=== PATIENT | male | born 1980 | race Caucasian/White ===

== ENCOUNTER 2018-06-13 13:57 | Inpatient (IN) | payer OTHER ==
[~2018-06-13] VITALS: Ht 185.4 cm; Wt 79.9 kg
[2018-06-13 14:33] VITALS: BP 122/67
[2018-06-13] MEDS: D5%-0.45% NACL 1,000 ML IV SCH ×2 (15:00→22:50)
[2018-06-13] MEDS ORDERED: ONDANSETRON ODT 4 MG PO PRN (15:00)
[2018-06-13] MEDS ORDERED: PLEASE ENTER ALLERGIES MC SCH (15:00)
[2018-06-13] MEDS ORDERED: POLYETHYLENE GLYCOL 17 GM PACKET PO PRN (15:00)
[2018-06-13] MEDS ORDERED: LABETALOL 5MG/ML, 20ML IVPush PRN (15:00)
[2018-06-13] MEDS ORDERED: PLEASE ENTER HEIGHT AND WEIGHT MC SCH (15:00)
[2018-06-13] MEDS ORDERED: ONDANSETRON 2MG/ML, 2ML IVPush PRN (15:00)
[2018-06-13 15:29] LABS: BASOPHILS # (AUTO) 0.02 x10^3/uL (0-0.1); BASOPHILS % (AUTO) 0 % (0-1); EOSINOPHILS % (AUTO) 0 % (1-7); LYMPHOCYTES % (AUTO) 8 % (22-44); MD NO; MEAN CORPUSCULAR HEMOGLOBIN 30.2 pg (27.5-34.5); MEAN CORPUSCULAR HGB CONC 33.1 g/dL (33.2-36.2); MEAN CORPUSCULAR VOLUME 91.2 fL (81-97); MEAN PLATELET VOLUME 11.3 fL (7.4-10.4); MONOCYTES # (AUTO) 0.12 x10^3/uL (0.2-0.8); MONOCYTES % (AUTO) 1 % (2-9); NEUTROPHILS # (AUTO) 9.37 x10^3/uL (1.8-6.8); NEUTROPHILS % (AUTO) 91 % (42-75); PLATELET COUNT 223 x10^3/uL (130-400); RED BLOOD COUNT 5.18 x10^6/uL (4.38-5.82); RED CELL DISTRIBUTION WIDTH 12.4 % (9.4-14.8)
[2018-06-13] MEDS ORDERED: OXYcodone/APAP 5/325MG TABLET PO PRN (15:30)
[2018-06-13] MEDS ORDERED: POTASSIUM CHLORIDE 20 MEQ, MAGNESIUM SULFATE 1 GM, FOLIC ACID 1 MG, THIAMINE 200 MG, MV... IV SCH (15:30)
[2018-06-13 15:37] LABS: ALANINE AMINOTRANSFERASE 26 U/L (12-78); ALBUMIN 3.9 g/dL (3.4-5.0); ANION GAP 6 mmol/L (5-15); CALCIUM 8.7 mg/dL (8.5-10.1); CHLORIDE 107 mmol/L (98-107); CREATININE 1.04 mg/dL (0.7-1.3)
[2018-06-13 15:40] LABS: ALKALINE PHOSPHATASE 50 U/L (45-117); BILIRUBIN,TOTAL 0.7 mg/dL (0.2-1.0); TOTAL PROTEIN 6.8 g/dL (6.4-8.2)
[2018-06-13] MEDS: METHOCARBAMOL 750 MG in DEXTROSE 5% 100 ML IV PRN (16:00)
[2018-06-13 16:23] LABS: INTERNATIONAL NORMALIZED RATIO 1.05 (0.93-1.1); PROTHROMBIN TIME 11.1 Seconds (9.6-11.5)
[2018-06-13] MEDS: MORPHINE SULFATE 4 MG/ML, 1ML IVPush PRN ×3 (16:47→23:09)
[2018-06-13] MEDS ORDERED: BACITRACIN 50,000 UNIT ONE (18:29)
[2018-06-13] MEDS ORDERED: THROMBIN 5,000 UNIT VIAL TP ONE (18:29)
[2018-06-13] MEDS ORDERED: BUPIVACAINE/PF-EPI 0.5% 1:200K ONE (18:29)
[2018-06-13] MEDS ORDERED: FENTANYL PF 250 MCG/5ML ONE (19:00)
[2018-06-13] MEDS ORDERED: MIDAZOLAM 1 MG/ML, 2ML ONE (19:00)
[2018-06-13] MEDS ORDERED: LIDOCAINE-MPF 2% ,5ML ONE (19:01)
[2018-06-13] MEDS ORDERED: PROPOFOL 10 MG/ML, 20ML ONE (19:01)
[2018-06-13] MEDS ORDERED: CEFAZOLIN 1,000 MG ONE (19:09)
[2018-06-13] MEDS ORDERED: DEXAMETHASONE 4 MG/ML, 1ML ONE (19:32)
[2018-06-13] MEDS ORDERED: ONDANSETRON 2MG/ML, 2ML ONE (19:32)
[2018-06-13] MEDS ORDERED: ROCURONIUM 10MG/ML,5ML ONE (19:32)
[2018-06-13] MEDS ORDERED: SUGAMMADEX 200 MG/2 ML IVPush ONE (19:34)
[2018-06-13] MEDS ORDERED: DEXMEDETOMIDINE 200 MCG/2 ML ONE (19:34)
[2018-06-13] MEDS ORDERED: hydrALAzine 20 MG/ML, 1ML IV PRN (20:00)
[2018-06-13] MEDS ORDERED: ACETAMINOPHEN 325 MG TABLET PO PRN (20:00)
[2018-06-13] MEDS ORDERED: HYDROmorphone 2 MG/ML, 1ML IVPush PRN (20:00)
[2018-06-13] MEDS ORDERED: HALOPERIDOL 5 MG/ML IV PRN (20:00)
[2018-06-13] MEDS ORDERED: DIAZEPAM 5 MG/ML, 2ML IVPush PRN (20:00)
[2018-06-13] MEDS ORDERED: PROMETHAZINE 25 MG/ML, 1ML IV PRN (20:00)
[2018-06-13] MEDS ORDERED: OXYcodone 5 MG/5 ML ORAL.SOL UDC PO PRN (20:00)
[2018-06-13] MEDS ORDERED: OXYcodone 5 MG/5 ML ORAL.SOL UDC ONE (20:25)
[2018-06-13] MEDS ORDERED: ACETAMINOPHEN 650 MG/20.3 ML UDC ONE (20:25)
[2018-06-13] MEDS ORDERED: FENTANYL PF 100 MCG/2ML ONE ×2 (20:25→21:07)
[2018-06-13] MEDS ORDERED: methylPREDNISolone*ACETATE* 80 MG/ML ONE (20:50)
[2018-06-13] MEDS ORDERED: MEPERIDINE/PF 50 MG/ML ONE (21:38)
[2018-06-13] MEDS: MEPERIDINE/PF 25MG/0.5ML IVPush PRN ×2 (21:40→21:45)
[2018-06-13] MEDS: FENTANYL PF 100 MCG/2ML IV PRN ×2 (21:50→21:57)
[2018-06-13 22:40] VITALS: BP 130/71
[2018-06-13] MEDS ORDERED: PHARMACY MAY ADJ FOR RENAL FX MC PRN (23:00)
[2018-06-14] MEDS: METHOCARBAMOL 750 MG in DEXTROSE 5% 100 ML IV PRN (00:21)
[2018-06-14] MEDS ORDERED: DIPHENHYDRAMINE 50 MG/ML, 1ML IM PRN (01:00)
[2018-06-14] MEDS ORDERED: DIPHENHYDRAMINE 50 MG CAPSULE PO PRN (01:00)
[2018-06-14] MEDS ORDERED: PROMETHAZINE 25 MG/ML, 1ML IM PRN (01:30)
[2018-06-14] MEDS ORDERED: MAGNESIUM HYDROXIDE 8%, 30ML UDC PO PRN (01:30)
[2018-06-14] MEDS ORDERED: BISACODYL 10 MG SUPP PR PRN (01:30)
[2018-06-14] MEDS ORDERED: ONDANSETRON 2MG/ML, 2ML IV PRN (01:30)
[2018-06-14] MEDS ORDERED: METHOCARBAMOL 750 MG TABLET PO PRN (01:30)
[2018-06-14] MEDS ORDERED: LABETALOL 5MG/ML, 20ML IV PRN (01:30)
[2018-06-14] MEDS ORDERED: NS + 20MEQ KCL 1,000 ML IV SCH (01:30)
[2018-06-14] MEDS: HYDROcodone/APAP 10/325 MG TABLET PO PRN ×3 (01:43→10:47)
[2018-06-14] MEDS ORDERED: CEFAZOLIN PMX 1GM/50ML 50 ML IVPB SCH (03:00)
[2018-06-14] MEDS: MORPHINE SULFATE 4 MG/ML, 1ML IVPush PRN ×2 (04:54→09:40)
[2018-06-14 04:59] VITALS: BP 120/65
[2018-06-14 06:40] VITALS: BP 110/65
[2018-06-14] MEDS ORDERED: DICLOFENAC SODIUM 75 MG TABLET.DR PO SCH (08:00)
[2018-06-14] MEDS ORDERED: SENNA/DOCUSATE TABLET PO SCH ×2 (09:00)
[2018-06-14 09:19] LABS: ALANINE AMINOTRANSFERASE 21 U/L (12-78); ALBUMIN 3.5 g/dL (3.4-5.0); ANION GAP 5 mmol/L (5-15); CALCIUM 8.3 mg/dL (8.5-10.1); CHLORIDE 107 mmol/L (98-107); CREATININE 0.91 mg/dL (0.7-1.3)
[2018-06-14 09:21] LABS: ALKALINE PHOSPHATASE 44 U/L (45-117); BILIRUBIN,TOTAL 0.9 mg/dL (0.2-1.0)
[2018-06-14 09:24] LABS: BASOPHILS # (AUTO) 0.04 x10^3/uL (0-0.1); BASOPHILS % (AUTO) 0 % (0-1); EOSINOPHILS % (AUTO) 0 % (1-7); LYMPHOCYTES # (AUTO) 1.57 x10^3/uL (1-3.4); LYMPHOCYTES % (AUTO) 13 % (22-44); MD NO; MEAN CORPUSCULAR HEMOGLOBIN 30.3 pg (27.5-34.5); MEAN CORPUSCULAR HGB CONC 33.4 g/dL (33.2-36.2); MEAN CORPUSCULAR VOLUME 90.7 fL (81-97); MEAN PLATELET VOLUME 10.7 fL (7.4-10.4); MONOCYTES # (AUTO) 0.64 x10^3/uL (0.2-0.8); MONOCYTES % (AUTO) 5 % (2-9); NEUTROPHILS % (AUTO) 82 % (42-75); PLATELET COUNT 191 x10^3/uL (130-400); RED BLOOD COUNT 4.56 x10^6/uL (4.38-5.82)
[2018-06-14] MEDS ORDERED: HYDR-3240 PO (10:06)
[2018-06-14] MEDS ORDERED: METH750T2 PO (10:07)
[2018-06-14] MEDS ORDERED: MELO7.5T31 PO (10:10)
[2018-06-14 10:53] VITALS: BP 134/68
== END 2018-06-14 11:28 | disposition home or self-care (01) | DRG 520 ==
LOC: 4NOR 14:25
PROVIDERS: ADMIT Hospitalist; ATTEND Hospitalist
PROC: 01NB0ZZ Release Lumbar Nerve, Open Approach (ICD-10-PCS; 2018-06-13)
PROC: 0SB20ZZ Excision of Lumbar Vertebral Disc, Open Approach (ICD-10-PCS; principal; 2018-06-13 19:00)
DX: M51.16 Intervertebral disc disorders with radiculopathy, lumbar region (principal); E83.42 Hypomagnesemia; D72.829 Elevated white blood cell count, unspecified; G89.29 Other chronic pain; R73.9 Hyperglycemia, unspecified; Z88.0 Allergy status to penicillin
CPT/HCPCS: 36415; 71045; 72100; 80053; 83735; 84100; 85025; 85610; 85730; 93005; G0378; J0690; J1100; J2175; J2250; J2405; J2704; J3010; J3490; J1040; J2800